=== PATIENT | male | born 1980 | race Caucasian/White ===

== ENCOUNTER → 2017-07-04 | Outpatient (CLI) | payer OTHER ==
--- NOTE | 2017-07-04 16:54 | RADIOLOGY REPORT (SQ) ---
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 NUMBER OF VIEWS: Three views. TECHNIQUE: Images of the paranasal sinuses acquired. LIMITATIONS: None. FINDINGS: ORBITS: No fracture. No foreign body. SINUSES: No mucosal thickening. No air fluid levels. FACIAL BONES: No fracture. OTHER: No other significant finding. IMPRESSION: NO FOREIGN BODY OR FRACTURE. NO PLAIN RADIOGRAPHIC EVIDENCE FOR SINUS DISEASE. TECHNICAL DOCUMENTATION: JOB ID: [id number] [employer]- All Rights Reserved
== END ==
LOC: OD 16:04
PROVIDERS: ATTEND Internal Medicine Pulmonary Disease
DX: J32.0 Chronic maxillary sinusitis (principal)
CPT/HCPCS: 70220

== ENCOUNTER → 2017-10-26 | Outpatient (CLI) | payer OTHER | LOC: OD 12:32 | PROVIDERS: ATTEND Otolaryngology | DX: J32.9 Chronic sinusitis, unspecified (principal); J34.3 Hypertrophy of nasal turbinates; R09.81 Nasal congestion | CPT/HCPCS: 36415; 82785; 86003 ==

== ENCOUNTER → 2018-06-11 | Outpatient (CLI) | payer OTHER | LOC: OD 17:09 | PROVIDERS: ATTEND Pain Medicine Interventional Pain Medicine | DX: Z51.81 Encounter for therapeutic drug level monitoring (principal); Z79.1 Long term (current) use of non-steroidal anti-inflammatories (NSAID) | CPT/HCPCS: 36415; 82565; 84520 ==

== ENCOUNTER 2018-07-01 10:53 | Emergency (ER) | payer OTHER ==
[2018-07-01 11:18] VITALS: BP 125/92
--- NOTE | 2018-07-01 12:17 | ER Document Report ---
HPI - HPI Time Seen by Provider: 07/01/18 11:58 Pain Level: 1 Notes: Patient is a 37-year-old male no significant past medical history who presents to the ED per the request of [facility] for CT scan for further evaluation of an abscess that could be "going up into his pelvis."Patient states that this showed up a few days ago and is painful to touch, but is right next to his anus. He has not noticed any streaks or purulent discharge. Denies drug allergies. He is eating and drinking without difficulty. He is urinating normally and having normal bowel movements. No history of MRSA. Denies any headache, fever, neck pain, URI, sore throat, chest pain, palpitations, syncope, cough, shortness of breath, wheeze, dyspnea, abdominal pain, nausea/vomiting/diarrhea, urinary retention, dysuria, hematuria, or rash. - ROS Systems Reviewed and Negative: Yes All other systems reviewed and negative Past Medical History - Social History Smoking Status: Never Smoker Family History: Reviewed & Not Pertinent Psychiatric Medical History: Reports: Hx Anxiety Vertical Provider Document - CONSTITUTIONAL Agree With Documented VS: Yes Notes: PHYSICAL EXAMINATION: GENERAL: Well-appearing, well-nourished and in no acute distress. LUNGS: Breath sounds clear to auscultation bilaterally and equal. No wheezes rales or rhonchi. HEART: Regular rate and rhythm without murmurs, rubs, gallops. ABDOMEN: Soft, nontender, nondistended abdomen. No guarding, no rebound. No masses appreciated. Normal bowel sounds present. No CVA tenderness bilaterally. Rectal: There is a non-thrombosed external hemorrhoid noted. No significant erythema, warmth, streaks, or purulence. No induration surrounding. + tenderness. Musculoskeletal: FROM to passive/active. Strength 5+/5. Extremities: No cyanosis, clubbing, or edema b/l. Peripheral pulses 2+. Capillary refill less than 3 seconds. NEUROLOGICAL: Normal speech, normal gait. PSYCH: Normal mood, normal affect. SKIN: see above. - INFECTION CONTROL TRAVEL OUTSIDE OF THE [place] IN LAST 30 DAYS: No Course - Re-evaluation Re-evalutation: 07/01/18 12:23 Patient is an afebrile, well-hydrated, 37-year-old male who presents to the ED with a nonthrombosed external hemorrhoid. Vitals are acceptable without significant tachycardia, tachypnea, or hypoxia. PE is otherwise unremarkable. Patient is nontoxic-appearing and is tolerating p.o. without difficulty. No incision and drainage is warranted at this time. I did have Dr. Mendosa eval the patient as well to confirm as the patient was under the impression he needed a CT scan and drainage of an abscess. Dr. Mendosa agrees with dispo/plan and dx of external hemorrhoid. No labs or imaging warranted at this time. Low suspicion for any necrotizing fasciitis, history, sepsis, meningitis, severe dehydration, respiratory compromise, or other systemic emergent condition at this time. Pt is aware that condition can change from initial presentation and he needs to monitor symptoms closely and seek medical attention with any acute changes. I will send him home with Anusol, Xylocaine jelly. Recommend conservative measures as reviewed. Recheck with a general surgeon/GI for further evaluation and management. Return to the ED with any other worsening/ concerning symptoms as reviewed. Patient is in agreement. - Vital Signs Vital signs: Temp Pulse Resp BP Pulse Ox 99.2 F 74 18 125/92 H 97 07/01/18 11:14 07/01/18 11:14 07/01/18 11:14 07/01/18 11:14 07/01/18 11:14 Discharge - Discharge Clinical Impression: External hemorrhoid Condition: Stable Disposition: HOME, SELF-CARE Instructions: HC Hemorrhoid Cream ([facility]), Hemorrhoids ([facility]) Additional Instructions: Maintain adequate fluid and food intake Keep stools soft Use medications as reviewed Sitz baths--there are a few ways of doing a sitz bath and you may look online that works best for you tylenol/motrin if needed Monitor for any worsening symptoms Recheck with your PCM in 3-5 days Consider consult with Gastroenterology/General Surgery for ongoing/worsening symptoms Return to the ED with any worsening symptoms and/or development of fever, headache, chest pain, palpitations, syncope, shortness of breath, trouble breathing, abdominal pain, n/v/d, blood in stool/urine, weakness, or other worsening symptoms that are concerning to you. Prescriptions: Hydrocortisone Acetate [Anusol Hc 25 mg Supp.rect] 1 supp.rect [place] DAILY PRN #10 supp.rect PRN Reason: Lidocaine HCl [Xylocaine] 1 gm TP QID PRN #35 oint..gm. PRN Reason: Forms: Elevated Blood Pressure Referrals: LILIANA STRATTON MD [Primary Care Provider] - Follow up as needed GERMAN MULLINS MD [ACTIVE STAFF] - Follow up as needed VIANNEY GALICIA MD [ACTIVE STAFF] - Follow up as needed
== END 2018-07-01 12:41 | disposition home or self-care (01) ==
LOC: ER 10:53
DX: K64.4 Residual hemorrhoidal skin tags (principal)
CPT/HCPCS: 99282